=== PATIENT | male | born 1950 | race Caucasian/White ===

== ENCOUNTER 2022-03-26 07:44 | Emergency (ER) | payer OTHER ==
[~2022-03-26] VITALS: Ht 170.2 cm; Wt 83.9 kg
[2022-03-26 07:58] VITALS: BP_SYST 145
--- NOTE | 2022-03-26 07:58 | NUR ---
Patient to ER bed 7 to gown for evaluation. Side rails up. Report given to .
[2022-03-26] MEDS ORDERED: BACITRACIN 1 GM OINT TP ONE ×3 (08:00→08:30)
[2022-03-26] MEDS ORDERED: DIPHTH,PERTUSS(ACELL),TET VAC 0.5 ML VIAL (Tdap) I.M. ONE (08:00)
[2022-03-26] MEDS ORDERED: MORPHINE 4 MG INJ. 4 MG/ML VIAL IVP ONE (08:00)
[2022-03-26] MEDS ORDERED: NACL 0.9% 2,000 ML IV ONE (08:00)
--- NOTE | 2022-03-26 08:00 | NUR ---
DR VILLANUEVA IN ROOM FOR EXAM
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
--- NOTE | 2022-03-26 08:20 | NUR ---
# 20 gauge angiocath placed to LAC. Use of asceptic technique. Opsite placed over site. Blood return noted. Blood for lab drawn from site. Flushed with 10 cc of normal saline. No evidence of infiltration noted. Patient tolerated well.
[2022-03-26] MEDS ORDERED: NACL 0.9% 1,000 ML IV ONE (08:30)
[2022-03-26 08:35] LABS: CALCIUM 8.6 mg/dL (8.4-11.0); CREATININE 1.22 mg/dL (0.55-1.30)
[2022-03-26 08:41] LABS: ALBUMIN 3.8 g/dL (3.4-4.8); PHOSPHORUS 2.7 mg/dL (2.7-4.5); TOTAL BILIRUBIN 2.2 mg/dL (0.0-1.0)
[2022-03-26 08:43] LABS: BASOPHILS # (AUTO) 0.1 K/uL (0.0-0.2); BASOPHILS % (AUTO) 0.2 % (0.0-2.0); HEMATOCRIT 59.1 % (36-54); HEMOGLOBIN 19.7 g/dL (14.0-18.0); LYMPHOCYTES # (AUTO) 3.3 K/uL (1.0-5.5); LYMPHOCYTES % (AUTO) 15.3 % (20.5-51.5); MEAN CORPUSCULAR HEMOGLOBIN 30 pg (27-31); MEAN CORPUSCULAR HGB CONC 33 % (32-36); MEAN CORPUSCULAR VOLUME 90 fL (79.0-98.0); MONOCYTES # (AUTO) 1.1 K/uL (0.0-1.0); MONOCYTES % (AUTO) 4.9 % (1.7-9.3); NEUTROPHILS # (AUTO) 17.2 K/uL (1.8-7.7); PLATELET COUNT (AUTO) 188 K/uL (130-430); RED BLOOD CELL COUNT(AUTO) 6.57 MIL/uL (4.2-6.2); WHITE BLOOD COUNT (AUTO) 21.7 K/uL (4.8-10.8)
--- NOTE | 2022-03-26 08:54 | NUR ---
BACITRACIN APPLIED TO PICKERING ON RIGHT ANTERIOR TORSO, AXILLARY, AND POSTERIOR TORSO AREA AND DRESSED WITH PETROLEUM DRESSING AND CURLEX GAUZE. BACITRACIN ALSO APPLIED TO PICKERING TO LIPS, RIGHT MAXILLARY REGION AND NOSE. PT STATES THERE WAS NO PAIN, ONLY MILD DISCOMFORT AND TOLERATED PROCEDURE.
--- NOTE | 2022-03-26 09:00 | NUR ---
Medicated per MD orders. IVF infusing with no s/s of infiltration at this time. Will cont to monitor
[2022-03-26] MEDS ORDERED: AMLO5TAB4 PO (09:33)
[2022-03-26] MEDS ORDERED: DAPA5TAB PO (09:33)
[2022-03-26] MEDS ORDERED: TAMS-11 PO (09:33)
[2022-03-26] MEDS ORDERED: METF-379 PO (09:33)
[2022-03-26] MEDS ORDERED: GLIP5TAB26 PO (09:33)
[2022-03-26] MEDS ORDERED: ASPI-1155 PO (09:33)
[2022-03-26] MEDS ORDERED: LOSA100T3 PO (09:33)
--- NOTE | 2022-03-26 10:00 | NUR ---
PT STATES HISTORY OF DM2, HTN, CHRONIC LYMPHATIC LEUKEMIA AND BPH . TAKES HIS MEDICINE DAILY AND FOLLOWS UP WITH ALL HIS DOCTOR APPOINTMENTS.
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
--- NOTE | 2022-03-26 12:35 | NUR ---
Patient to be transferred to [facility]. Is being transferred due to higher level of care. Receiving facility has accepting physician and available space. ER physician has signed transfer form. Patient or responsible republican has agreed to transfer and signed form. Patient belongings inventoried and will be sent with patient. Copy of nursing notes, lab reports, EKG, Physicians Orders and X-rays to be sent with patient. Report called to at receiving facility. Receiving physician is . ambulance service has been called for transfer.
--- NOTE | 2022-03-26 14:15 | NUR ---
Patient to be transferred to [facility]. Is being transferred due to higher level of care. Receiving facility has accepting physician and available space. ER physician has signed transfer form. Patient or responsible libertarian has agreed to transfer and signed form. Patient belongings inventoried and will be sent with patient. Copy of nursing notes, lab reports, EKG, Physicians Orders and X-rays to be sent with patient. Report called to May RN at receiving facility. Receiving physician is ER MD. [facility] has been called for transfer.
[2022-03-26 14:34] LABS: NEUTROPHILS % (AUTO) 79.6 % (40.0-70.0)
[2022-03-26 18:59] VITALS: BP_SYST 137
== END 2022-03-26 14:15 | disposition short-term general hospital (02) ==
LOC: SED 07:44
DX: T20.30XA Burn of third degree of head, face, and neck, unspecified site, initial encounter (principal); T22.331A Burn of third degree of right upper arm, initial encounter; T21.31XA Burn of third degree of chest wall, initial encounter; D72.829 Elevated white blood cell count, unspecified; R74.02 Elevation of levels of lactic acid dehydrogenase [LDH]; E87.6 Hypokalemia; E11.9 Type 2 diabetes mellitus without complications; I10 Essential (primary) hypertension; Z79.899 Other long term (current) drug therapy; X08.8XXA Exposure to other specified smoke, fire and flames, initial encounter; Y93.89 Activity, other specified; Y92.89 Other specified places as the place of occurrence of the external cause; Y99.8 Other external cause status
CPT/HCPCS: 36415; 80053; 82550; 83605; 83735; 84100; 85025; 90715; 99291